=== PATIENT | male | born 2005 | race Caucasian/White ===

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

== ENCOUNTER 2023-02-21 09:17 | Emergency (ER) | payer OTHER ==
[~2023-02-21] VITALS: Ht 182.9 cm; Wt 77.1 kg
[~2023-02-21 09:17] MED LIST changes: +NORCO 5-325 TA1 EACH PO
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
[2023-02-21] MEDS ORDERED: METHYLPHENIDATE36 MG PO (09:38)
[2023-02-21 10:14] VITALS: BP 131/80
== END 2023-02-21 10:16 | disposition home or self-care (01) ==
LOC: ED 09:17
DX: S06.0X0A Concussion without loss of consciousness, initial encounter (principal); V49.9XXA Car occupant (driver) (passenger) injured in unspecified traffic accident, initial encounter; J45.909 Unspecified asthma, uncomplicated; Z88.7 Allergy status to serum and vaccine; Z88.0 Allergy status to penicillin; Z79.899 Other long term (current) drug therapy
CPT/HCPCS: 99283